=== PATIENT | female | born 1985 | race Caucasian/White ===

== ENCOUNTER 2021-05-14 21:50 | Emergency (ER) | payer SELFPAY ==
[~2021-05-14] VITALS: Ht 160 cm; Wt 68.0 kg
[2021-05-14 22:10] VITALS: BP 134/68
--- NOTE | 2021-05-14 22:33 | NUR ---
Patient being evaluated by physician
--- NOTE | 2021-05-14 22:47 | NUR ---
PT TAKEN TO BED 4
[2021-05-14 23:00] VITALS: BP 134/68
--- NOTE | 2021-05-14 23:00 | NUR ---
SEE COMPLETE ASSESSMENT FOR ADDITIONAL INFORMATION
[2021-05-14] MEDS ORDERED: MORPHINE SULFATE 2 MG/ML SYR IVP ONE (23:20)
[2021-05-14] MEDS ORDERED: NACL 0.9% 1,000 ML IV SCH (23:20)
[2021-05-14] MEDS ORDERED: ONDANSETRON 4 MG/2 ML VIAL IVP ONE (23:20)
[2021-05-14 23:47] LABS: BASOPHILS # (AUTO) 0.1 K/uL (0.00-0.22); BASOPHILS % (AUTO) 0.6 % (0.0-2.0); EOSINOPHILS # (AUTO) 0.3 K/uL (0-0.4); EOSINOPHILS % (AUTO) 3.2 % (0.0-4.0); HEMOGLOBIN 13.8 g/dL (12.0-16.0); LYMPHOCYTES # (AUTO) 2.9 K/uL (2.5-16.5); LYMPHOCYTES % (AUTO) 34.8 % (20.5-51.1); MEAN CORPUSCULAR HEMOGLOBIN 33 pg (27-31); MEAN CORPUSCULAR HGB CONC 36 g/dL (33-37); MEAN CORPUSCULAR VOLUME 93.2 fL (80-94); MONOCYTES # (AUTO) 0.5 K/uL (0.8-1.0); MONOCYTES % (AUTO) 5.5 % (1.7-9.3); NEUTROPHILS # (AUTO) 4.6 K/uL (1.8-7.7); NEUTROPHILS % (AUTO) 55.9 % (42.2-75.2); PLATELET COUNT (AUTO) 320 K/uL (140-450); RED BLOOD CELL COUNT(AUTO) 4.18 MIL/uL (4.20-5.40); RED CELL DISTRIBUTION WIDTH 12.3 % (11.6-13.7); WHITE BLOOD COUNT (AUTO) 8.3 K/uL (4.8-10.8)
[2021-05-15] MEDS ORDERED: diphenhydrAMINE 50 MG/ML VIAL IVP ONE
[2021-05-15] MEDS ORDERED: diphenhydrAMINE 50 MG/ML VIAL ONE (00:01)
[2021-05-15 00:10] LABS: ALBUMIN 4.1 g/dL (3.4-5.0); ANION GAP 12.7 (8-16); CARBON DIOXIDE 25.6 mmol/L (21-32); CREATININE 0.7 mg/dL (0.6-1.3); POTASSIUM 3.3 mmol/L (3.5-5.1); TOTAL BILIRUBIN 0.2 mg/dL (0.0-1.0)
[2021-05-15 00:52] LABS: APPEARANCE,URINE CLEAR (CLEAR); BILIRUBIN,URINE NEGATIVE (NEGATIVE); BLOOD, URINE 3+ (NEGATIVE); COLOR,URINE YELLOW (YELLOW); LEUKOCYTE ESTERASE ,URINE 3+ (NEGATIVE); NITRITE, URINE NEGATIVE (NEGATIVE); UGLUCOSE NEGATIVE (NEGATIVE)
--- NOTE | 2021-05-15 01:05 | NUR ---
PT STATES "I CANT WAIT ANYMORE. I'M LEAVING." PATIENT ELOPED FROM FACILITY. DISCHARGE INSTRUCTIONS NOT GIVEN TO PATIENT. DR. JOHNSON MADE AWARE.
--- NOTE | 2021-05-15 01:05 | NUR ---
The patient's care was reviewed and supervised by Kimberlyn Jacob RN.
== END 2021-05-15 01:05 | disposition left against medical advice (07) ==
LOC: MED 21:50
DX: T78.40XA Allergy, unspecified, initial encounter (principal); R10.9 Unspecified abdominal pain; R11.2 Nausea with vomiting, unspecified; N93.9 Abnormal uterine and vaginal bleeding, unspecified; F12.10 Cannabis abuse, uncomplicated; Z88.8 Allergy status to other drugs, medicaments and biological substances
CPT/HCPCS: 36415; 80053; 81001; 83690; 84703; 85025; 87086; 96361; 96374; 96375; 99284; J1200; J2270; J2405; J7030